=== PATIENT | female | born 1995 | race Caucasian/White ===

== ENCOUNTER 2017-01-25 06:17 | Emergency (ER) | payer BC, OTHER ==
[~2017-01-25] VITALS: Ht 165.1 cm; Wt 117.9 kg
[~2017-01-25 06:17] MED LIST: NOHOMEMEDICATIONS; ZOFRAN ODT4 MG PO
[2017-01-25] MEDS ORDERED: DEPO-PROVER150 MG/M1 IM (06:40)
[2017-01-25] MEDS ORDERED: OMEPRAZOLE20 M2 PO (06:40)
[2017-01-25] MEDS ORDERED: TOPAMAX 25 MG T25 M1 PO (06:41)
[2017-01-25] MEDS ORDERED: TRAZODONE HCL50 MG PO (06:41)
[2017-01-25] MEDS ORDERED: EFFEXOR XR75 MG PO (06:41)
[2017-01-25] MEDS ORDERED: OLANZAPINE10 MG PO (06:42)
[2017-01-25 07:25] LABS: HEMATOCRIT 39.2 % (37.0-47.0); HEMOGLOBIN 12.9 gm/dL (12.0-15.0); MCH 26.9 pg (26.0-34.0); MCHC 32.8 g/dL (28.0-37.0); MCV 81.9 fL (80.0-100.0); RBC 4.79 mil/uL (4.20-5.00); RDW 15.2 % (10.5-14.5); WBC 12.1 thou/uL (4.0-11.0)
[2017-01-25 07:35] LABS: CALCIUM 8.9 mg/dL (8.5-10.1); CREATININE 0.7 mg/dL (0.6-1.0); POTASSIUM 3.4 mmol/L (3.5-5.1); SALICYLATE 3.4 mg/dL (2.8-20.0)
[2017-01-25 08:21] LABS: URINE BILIRUBIN NEGATIVE (Negative); URINE BLOOD NEGATIVE (Negative); URINE COLOR YELLOW; URINE GLUCOSE-RANDOM* NEGATIVE (Negative); URINE KETONES NEGATIVE (Negative); URINE LEUKOCYTES-REFLEX NEGATIVE (Negative); URINE PROTEIN (DIPSTICK) NEGATIVE (Negative); URINE SPECIFIC GRAVITY >= 1.030 (1.003-1.035); URINE UROBILINOGEN 0.2 E.U./dl (0.2-1.0)
[2017-01-25 09:36] LABS: AMP/METHAMP Negative (Negative); BARBITURATES Negative (Negative); BENZODIAZEPINES Negative (Negative); COCAINE Negative (Negative); METHADONE Negative (Negative); OPIATES Negative (Negative); PCP Negative (Negative); THC Negative (Negative)
[2017-01-25 20:24] VITALS: BP 113/64
== END 2017-01-26 11:34 ==
LOC: ER 06:17
PROVIDERS: Emergency Medicine
DX: R45.851 Suicidal ideations (principal); F25.9 Schizoaffective disorder, unspecified; Z88.5 Allergy status to narcotic agent

== ENCOUNTER 2017-06-26 01:09 | Emergency (ER) | payer BC, OTHER ==
[~2017-06-26] VITALS: Ht 165.1 cm; Wt 127.0 kg
[~2017-06-26 01:09] MED LIST changes: +DEPO-PROVER150 MG/M1 IM; +EFFEXOR XR75 MG PO; +OLANZAPINE10 MG PO; +OMEPRAZOLE20 M2 PO; +TOPAMAX 25 MG T25 M1 PO; +TRAZODONE HCL50 MG PO
[2017-06-26] MEDS ORDERED: STOOL SOFTENER100 MG (01:19)
[2017-06-26] MEDS ORDERED: RISPERIDONE 1 MG1 MG PO (01:19)
[2017-06-26] MEDS ORDERED: MYRBETRIQ50 MG PO (01:20)
[2017-06-26] MEDS ORDERED: KEFLEX250 MG (01:20)
[2017-06-26] MEDS ORDERED: RISPERDAL2 MG PO (01:20)
[2017-06-26] MEDS ORDERED: TESTOSTERON100 MG/ML IM (01:21)
[2017-06-26 01:29] LABS: URINE BILIRUBIN NEGATIVE (Negative); URINE BLOOD NEGATIVE (Negative); URINE COLOR YELLOW; URINE GLUCOSE-RANDOM* NEGATIVE (Negative); URINE KETONES NEGATIVE (Negative); URINE PROTEIN (DIPSTICK) NEGATIVE (Negative); URINE UROBILINOGEN 0.2 E.U./dl (0.2-1.0)
[2017-06-26 01:38] LABS: URINE LEUKOCYTES-REFLEX 1+ (Negative)
[2017-06-26 01:39] LABS: CASTS None Seen /LPF (None Seen); SQUAMOUS 0-3 Few /LPF (0-3)
[2017-06-26 01:40] LABS: AMORPHOUS PHOSPHATES Moderate /LPF (None Seen); CRYSTALS None Seen /LPF (None Seen); URINE RBC 0-2 Rare /HPF (0-2); URINE WBC-REFLEX 6-15 Few /HPF (0-5)
[2017-06-26 02:05] LABS: ABSOLUTE NEUTROPHILS 7.2 thou/uL (1.4-8.2); EOSINOPHILS 5.3 % (0.0-3.0); HEMATOCRIT 40.9 % (37.0-47.0); HEMOGLOBIN 13.3 gm/dL (12.0-15.0); LYMPHOCYTES 27.9 % (24.0-44.0); MCH 26.9 pg (26.0-34.0); MCHC 32.6 g/dL (28.0-37.0); MCV 82.6 fL (80.0-100.0); MONOCYTES 9.3 % (1.0-8.0); PLATELET COUNT 286 thou/uL (150-400); POLYS 56.5 % (36.0-66.0); RBC 4.95 mil/uL (4.20-5.00); RDW 15.4 % (10.5-14.5); WBC 12.7 thou/uL (4.0-11.0)
[2017-06-26 02:08] LABS: MANUAL DIFF NO
[2017-06-26 02:12] LABS: CALCIUM 9.2 mg/dL (8.5-10.1); CREATININE 0.7 mg/dL (0.6-1.0); POTASSIUM 3.7 mmol/L (3.5-5.1)
[2017-06-26 02:18] LABS: ALBUMIN 3.1 g/dL (3.4-5.0); TOTAL BILIRUBIN 0.2 mg/dL (<0.1-1.0); TOTAL PROTEIN 6.6 g/dL (6.4-8.2)
[2017-06-26] MEDS ORDERED: TORADOL 10 MG T10 MG PO (02:51)
[2017-06-26] MEDS ORDERED: KEFLEX500 M1 PO (02:51)
[2017-06-26] MEDS ORDERED: HYDROCODONE-AP1 EAC6 PO (02:51)
[2017-06-26] MEDS ORDERED: ZOFRAN ODT8 MG PO (02:51)
[2017-06-26 04:35] VITALS: BP 108/79
== END 2017-06-26 04:37 | disposition home or self-care (01) ==
LOC: ER 01:09
PROVIDERS: Emergency Medicine
DX: M54.5 Low back pain (principal); N39.0 Urinary tract infection, site not specified; R11.2 Nausea with vomiting, unspecified; F20.9 Schizophrenia, unspecified; F17.210 Nicotine dependence, cigarettes, uncomplicated; Z87.442 Personal history of urinary calculi; Z90.89 Acquired absence of other organs; Z87.440 Personal history of urinary (tract) infections; Z88.5 Allergy status to narcotic agent